=== PATIENT | female | born 1965 | race Caucasian/White ===

== ENCOUNTER 2016-06-27 05:26 | Observation (INO) | payer OTHER ==
[2016-06-27] MEDS ORDERED: Nitroglycerin 2% Oint 1 GM UD Packet TOP ONE (05:51)
[2016-06-27] MEDS ORDERED: Alum Hydrox/Mag Hydrox/Simeth 15 ML, Metoclopramide 5 MG, Lidocaine 2% 5 ML PO ONE ×3 (05:51)
[2016-06-27] MEDS ORDERED: Sucralfate Suspension 1 GM/10 ML Cup PO STA (05:51)
[2016-06-27] MEDS ORDERED: Aspirin 81 MG Tab.Chew PO ONE (05:51)
[2016-06-27] MEDS ORDERED: Nitroglycerin 0.4 MG Tab.SL SL PRN (05:51)
--- NOTE | 2016-06-27 05:56 | EDM.PDOC ---
ED HISTORY OF PRESENT ILLNESS - General Chief Complaint: Cardiovascular Problem Stated Complaint: CHEST PAIN Time Seen by Provider: 06/27/16 05:53 Source of Information: Reports: Patient, Family, RN - History of Present Illness INITIAL COMMENTS - FREE TEXT/NARRATIVE: She presented to the emergency department approximately a 2 hour history of progressive epigastric and substernal chest burning. She has felt dyspneic. She' s feeling a little better now. She has no known history of coronary artery disease. - Related Data Allergies/ADRs: Allergies Allergy/AdvReac Type Severity Reaction Status Date / Time No Known Allergies Allergy Verified 06/27/16 05:31 Home Meds: Home Meds Levothyroxine Sodium [Synthroid] 25 mcg PO ACBREAKFAST 06/09/16 [History] Past Medical History - Past Health History Medical/Surgical History: Denies Medical/Surgical History Cardiovascular History: Reports: Hypertension (She states that she has had hypertension), Other (see below) (Prior history of atrial flutter diagnosed June 09, 2016 [facility]). Denies: CAD, Heart Failure, MO ( before but has not been on any medicine for it) Respiratory History: Denies: COPD, Cystic Fibrosis, Interstitial lung disease Genitourinary History: Reports: None Other OB/BYN History: Partial Hysterectomy Neurological History: Denies: CVA Endocrine/Metabolic History: Reports: Hypothyroidism. Denies: Diabetes, type II Oncologic (Cancer) History: Reports: Cervix - Infectious Disease History Infectious Disease History: Reports: Chicken pox - Past Surgical History Female Surgical History: Reports: Hysterectomy, Other (see below) Other Female Surgeries/Procedures: partial hysterectomy Social & Family History - Family History Family Medical History: Noncontributory Cardiac: Reports: Hypertension, MO - Tobacco Use Smoking Status *Q: Current Every Day Smoker Years of Tobacco use: 20 Packs/Tins Daily: 0.5 - Caffeine Use Caffeine Use: Reports: Coffee Caffeine Use Comment: 1cup/day - Alcohol Use Alcohol Use Comment: She states she does not use alcohol. - Recreational Drug Use Recreational Drug Use: No ED ROS GENERAL - Review of Systems Review Of Systems: See Below Constitutional: Denies: fever, chills Respiratory: Reports: shortness of breath. Denies: cough Cardiovascular: Reports: Chest pain ED EXAM, GENERAL - Physical Exam Exam: See Below General Appearance: alert, anxious, other (She is tearful) Head: atraumatic Respiratory/Chest: no respiratory distress, lungs clear. No: chest non-tender ( Mild sternal chest tenderness) Cardiovascular: normal peripheral pulses, regular rate, rhythm GI/Abdominal: soft, non tender. No: tender Extremities: No: pedal edema Neurological: alert, CN II-XII intact Psychiatric: tearful Course - Vital Signs Last Recorded V/S: Last Vital Signs Temp 97.9 F 06/27/16 07:51 Pulse 72 06/27/16 07:51 Resp 20 06/27/16 07:51 BP 120/80 06/27/16 07:51 Pulse Ox 95 06/27/16 07:51 - Orders/Labs/Meds Orders: Active Orders 24 hr Category Date Time Status Patient Status [ADT] Routine ADT 06/27/16 07:10 Active EKG Documentation Completion [RC] STAT Care 06/27/16 05:35 Active Oxygen Therapy [RC] PRN Care 06/27/16 07:10 Active VTE/DVT Education [RC] PER UNIT ROUTINE Care 06/27/16 07:10 Active Vital Signs [RC] Q4H Care 06/27/16 07:10 Active Regular Diet [DIET] Diet 06/27/16 Lunch Active Chest 1V Frontal [CR] Stat Exams 06/27/16 05:35 Taken TROPONIN I [CHEM] Q6H Lab 06/27/16 12:00 Ordered TROPONIN I [CHEM] Q6H Lab 06/27/16 18:00 Ordered Bisacodyl [Dulcolax] Med 06/27/16 07:10 Active 5 mg PO DAILY PRN Enoxaparin [Lovenox] Med 06/28/16 09:00 Active 40 mg SUBCUT DAILY Levothyroxine Med 06/27/16 07:30 Active 25 mcg PO ACBREAKFAST Nitroglycerin [Nitro-Bid 2%] Med 06/27/16 07:30 Active 1 gm TOP Q6H Ondansetron [Zofran] Med 06/27/16 07:10 Active 4 mg IVPUSH Q4H PRN Pantoprazole [Protonix IV] Med 06/27/16 21:00 Active 40 mg IVPUSH BID Sodium Chloride 0.9% [Saline Flush] Med 06/27/16 07:10 Active 10 ml FLUSH ASDIRECTED PRN Sodium Chloride 0.9% [Saline Flush] Med 06/27/16 07:10 Active 2.5 ml FLUSH ASDIRECTED PRN Sucralfate [Carafate] Med 06/27/16 07:30 Active 1 gm PO Q6H Temazepam [Restoril] Med 06/27/16 07:10 Active 15 mg PO BEDTIME PRN Saline Lock Insert [OM.PC] Routine Oth 06/27/16 07:10 Ordered Resuscitation Status Routine Resus Stat 06/27/16 07:10 Ordered Medication Orders Bisacodyl (Dulcolax) 5 mg PO DAILY PRN PRN Reason: Constipation Enoxaparin Sodium (Lovenox) 40 mg SUBCUT DAILY ACE Levothyroxine Sodium (Levothyroxine) 25 mcg PO ACBREAKFAST ACE Nitroglycerin (Nitro-Bid 2%) 1 gm TOP Q6H ACE Ondansetron HCl (Zofran) 4 mg IVPUSH Q4H PRN PRN Reason: Nausea Pantoprazole Sodium (Protonix Iv) 40 mg IVPUSH BID ACE Sodium Chloride (Saline Flush) 10 ml FLUSH ASDIRECTED PRN PRN Reason: Keep Vein Open Sodium Chloride (Saline Flush) 2.5 ml FLUSH ASDIRECTED PRN PRN Reason: Keep Vein Open Sucralfate (Carafate) 1 gm PO Q6H ACE Temazepam (Restoril) 15 mg PO BEDTIME PRN PRN Reason: Sleep Labs: Laboratory Tests 06/27/16 06/27/16 06/27/16 Range/Units 05:42 05:42 05:42 WBC 8.31 (4.0-11.0) K/uL RBC 5.00 (4.30-5.90) M/uL Hgb 16.5 H (12.0-16.0) g/dL Hct 48.8 H (36.0-46.0) % MCV 97.6 (80.0-98.0) fL MCH 33.0 H (27.0-32.0) pg MCHC 33.8 (31.0-37.0) g/dL RDW Std Deviation 45.7 (28.0-62.0) fl RDW Coeff of Brittney 13 (11.0-15.0) % Plt Count 298 (150-400) K/uL MPV 12.40 H (7.40-12.00) fL Neut % (Auto) 58.7 (48.0-80.0) % Lymph % (Auto) 33.3 (16.0-40.0) % Mineral % (Auto) 5.5 (0.0-15.0) % Eos % (Auto) 1.4 (0.0-7.0) % Baso % (Auto) 1.1 (0.0-1.5) % Neut # 4.9 (1.4-5.7) K/uL Lymph # 2.8 H (0.6-2.4) K/uL Mineral # 0.5 (0.0-0.8) K/uL Eos # 0.1 (0.0-0.7) K/uL Baso # 0.1 (0.0-0.1) K/uL Nucleated RBC % 0.0 /100WBC Nucleated RBCs # 0 K/uL D-Dimer, Quantitative (0.0-0.52) mg/LFEU Sodium 139 (136-146) mmol/L Potassium 3.8 (3.5-5.1) mmol/L Chloride 103 (98-110) mmol/L Carbon Dioxide 24 (21-31) mmol/L BUN 15 (6.0-23.0) mg/dL Creatinine 0.9 (0.6-1.5) mg/dL Est Cr Clr Drug Dosing 65.29 mL/min Estimated GFR (MDRD) > 60.0 ml/min Glucose 211 H (60-110) mg/dL Calcium 9.9 (8.8-10.8) mg/dL Total Bilirubin 0.9 (0.1-1.5) mg/dL AST 29 (5-40) IU/L ALT 58 H (8-54) IU/L Alkaline Phosphatase 96 (40-150) CK-MB (CK-2) 1.5 (0-6.6) ng/ml Troponin I < 0.10 (0.0-0.29) NG/ML Total Protein 7.9 (6.0-8.0) g/dL Albumin 4.2 (3.5-5.0) g/dL Globulin 3.7 H (2.0-3.5) g/dL Albumin/Globulin Ratio 1.1 L (1.3-2.8) Triglycerides (10-190) mg/dL Cholesterol (131-240) mg/dL LDL Cholesterol, Calc (60-180) mg/dL VLDL Cholesterol (5-55) mg/dL HDL Cholesterol (40-80) mg/dL Cholesterol/HDL Ratio (3.3-6.0) 06/27/16 06/27/16 Range/Units 05:42 05:42 WBC (4.0-11.0) K/uL RBC (4.30-5.90) M/uL Hgb (12.0-16.0) g/dL Hct (36.0-46.0) % MCV (80.0-98.0) fL MCH (27.0-32.0) pg MCHC (31.0-37.0) g/dL RDW Std Deviation (28.0-62.0) fl RDW Coeff of Brittney (11.0-15.0) % Plt Count (150-400) K/uL MPV (7.40-12.00) fL Neut % (Auto) (48.0-80.0) % Lymph % (Auto) (16.0-40.0) % Mineral % (Auto) (0.0-15.0) % Eos % (Auto) (0.0-7.0) % Baso % (Auto) (0.0-1.5) % Neut # (1.4-5.7) K/uL Lymph # (0.6-2.4) K/uL Mineral # (0.0-0.8) K/uL Eos # (0.0-0.7) K/uL Baso # (0.0-0.1) K/uL Nucleated RBC % /100WBC Nucleated RBCs # K/uL D-Dimer, Quantitative 0.32 (0.0-0.52) mg/LFEU Sodium (136-146) mmol/L Potassium (3.5-5.1) mmol/L Chloride (98-110) mmol/L Carbon Dioxide (21-31) mmol/L BUN (6.0-23.0) mg/dL Creatinine (0.6-1.5) mg/dL Est Cr Clr Drug Dosing mL/min Estimated GFR (MDRD) ml/min Glucose (60-110) mg/dL Calcium (8.8-10.8) mg/dL Total Bilirubin (0.1-1.5) mg/dL AST (5-40) IU/L ALT (8-54) IU/L Alkaline Phosphatase (40-150) CK-MB (CK-2) (0-6.6) ng/ml Troponin I (0.0-0.29) NG/ML Total Protein (6.0-8.0) g/dL Albumin (3.5-5.0) g/dL Globulin (2.0-3.5) g/dL Albumin/Globulin Ratio (1.3-2.8) Triglycerides 211 H (10-190) mg/dL Cholesterol 257 H (131-240) mg/dL LDL Cholesterol, Calc 179 (60-180) mg/dL VLDL Cholesterol 42 (5-55) mg/dL HDL Cholesterol 36 L (40-80) mg/dL Cholesterol/HDL Ratio 7.1 H (3.3-6.0) Meds: Medications Generic Name Dose Route Start Last Admin Trade Name Freq PRN Reason Stop Dose Admin Bisacodyl 5 mg 06/27/16 07:10 Dulcolax PO DAILY PRN Constipation Enoxaparin Sodium 40 mg 06/28/16 09:00 Lovenox SUBCUT DAILY [facility] Levothyroxine Sodium 25 mcg 06/27/16 07:30 Levothyroxine PO ACBREAKFAST [facility] Nitroglycerin 1 gm 06/27/16 07:30 Nitro-Bid 2% TOP Q6H ACE Ondansetron HCl 4 mg 06/27/16 07:10 Zofran IVPUSH Q4H PRN Nausea Pantoprazole Sodium 40 mg 06/27/16 21:00 Protonix Iv IVPUSH BID ACE Sodium Chloride 10 ml 06/27/16 07:10 Saline Flush FLUSH ASDIRECTED PRN Keep Vein Open Sodium Chloride 2.5 ml 06/27/16 07:10 Saline Flush FLUSH ASDIRECTED PRN Keep Vein Open Sucralfate 1 gm 06/27/16 07:30 Carafate PO Q6H ACE Temazepam 15 mg 06/27/16 07:10 Restoril PO BEDTIME PRN Sleep Discontinued Medications Generic Name Dose Route Start Last Admin Trade Name Freq PRN Reason Stop Dose Admin Aspirin 324 mg 06/27/16 05:51 06/27/16 06:02 Aspirin PO 06/27/16 05:52 324 mg ONETIME ONE Administration Al Hydroxide/Mg Hydroxide 15 0 ml 06/27/16 05:51 06/27/16 06:03 ml/ Metoclopramide HCl 5 mg/ PO 06/27/16 05:52 25 each Lidocaine HCl 5 ml ONETIME ONE Administration Nitroglycerin 1 gm 06/27/16 05:51 06/27/16 06:07 Nitro-Bid 2% TOP 06/27/16 05:52 1 gm ONETIME ONE Administration Nitroglycerin 0.4 mg 06/27/16 05:51 06/27/16 06:06 Nitrostat SL 06/27/16 06:02 0.4 mg Q5M PRN Administration Chest Pain Sucralfate 1 gm 06/27/16 05:51 06/27/16 06:19 Carafate PO 06/27/16 05:52 1 gm NOW STA Administration Departure - Departure Time of Disposition: 07:30 Disposition: Refer to Observation Clinical Impression: Atypical chest pain - My Orders Last 24 Hours: My Active Orders 06/27/16 05:35 EKG Documentation Completion [RC] STAT Chest 1V Frontal [CR] Stat 06/27/16 07:10 Patient Status [ADT] Routine Oxygen Therapy [RC] PRN VTE/DVT Education [RC] PER UNIT ROUTINE Vital Signs [RC] Q4H Bisacodyl [Dulcolax] 5 mg PO DAILY PRN Ondansetron [Zofran] 4 mg IVPUSH Q4H PRN Sodium Chloride 0.9% [Saline Flush] 10 ml FLUSH ASDIRECTED PRN Sodium Chloride 0.9% [Saline Flush] 2.5 ml FLUSH ASDIRECTED PRN Temazepam [Restoril] 15 mg PO BEDTIME PRN Saline Lock Insert [OM.PC] Routine Resuscitation Status Routine 06/27/16 07:30 Levothyroxine 25 mcg PO ACBREAKFAST Nitroglycerin [Nitro-Bid 2%] 1 gm TOP Q6H Sucralfate [Carafate] 1 gm PO Q6H 06/27/16 12:00 TROPONIN I [CHEM] Q6H 06/27/16 18:00 TROPONIN I [CHEM] Q6H 06/27/16 21:00 Pantoprazole [Protonix IV] 40 mg IVPUSH BID 06/27/16 Lunch Regular Diet [DIET] 06/28/16 09:00 Enoxaparin [Lovenox] 40 mg SUBCUT DAILY - Assessment/Plan Last 24 Hours: My Active Orders 06/27/16 05:35 EKG Documentation Completion [RC] STAT Chest 1V Frontal [CR] Stat 06/27/16 07:10 Patient Status [ADT] Routine Oxygen Therapy [RC] PRN VTE/DVT Education [RC] PER UNIT ROUTINE Vital Signs [RC] Q4H Bisacodyl [Dulcolax] 5 mg PO DAILY PRN Ondansetron [Zofran] 4 mg IVPUSH Q4H PRN Sodium Chloride 0.9% [Saline Flush] 10 ml FLUSH ASDIRECTED PRN Sodium Chloride 0.9% [Saline Flush] 2.5 ml FLUSH ASDIRECTED PRN Temazepam [Restoril] 15 mg PO BEDTIME PRN Saline Lock Insert [OM.PC] Routine Resuscitation Status Routine 06/27/16 07:30 Levothyroxine 25 mcg PO ACBREAKFAST Nitroglycerin [Nitro-Bid 2%] 1 gm TOP Q6H Sucralfate [Carafate] 1 gm PO Q6H 06/27/16 12:00 TROPONIN I [CHEM] Q6H 06/27/16 18:00 TROPONIN I [CHEM] Q6H 06/27/16 21:00 Pantoprazole [Protonix IV] 40 mg IVPUSH BID 06/27/16 Lunch Regular Diet [DIET] 06/28/16 09:00 Enoxaparin [Lovenox] 40 mg SUBCUT DAILY
[2016-06-27 06:14] LABS: CHLORIDE,CL 103 mmol/L (98-110); SODIUM,NA 139 mmol/L (136-146)
[2016-06-27] MEDS ORDERED: Sodium Chloride 0.9% 10 ML Syringe FLUSH PRN (07:10)
[2016-06-27] MEDS ORDERED: Temazepam 15 MG Cap PO PRN (07:10)
[2016-06-27] MEDS ORDERED: Bisacodyl 5 MG Tab PO PRN (07:10)
[2016-06-27] MEDS ORDERED: Sodium Chloride 0.9% 2.5 ML Syringe FLUSH PRN (07:10)
[2016-06-27] MEDS ORDERED: Ondansetron 4 MG/2 ML SDV IVPUSH PRN (07:10)
[2016-06-27] MEDS ORDERED: Levothyroxine 25 MCG Tab PO SCH (07:30)
[2016-06-27] MEDS ORDERED: Nitroglycerin 2% Oint 1 GM UD Packet TOP SCH (07:30)
[2016-06-27] MEDS: Sucralfate Suspension 1 GM/10 ML Cup PO SCH ×2 (09:13→13:53)
[2016-06-27] MEDS ORDERED: Acetaminophen 325 MG Tab PO PRN (11:42)
[2016-06-27 12:09] VITALS: BP 106/66
[2016-06-27] MEDS ORDERED: Nitroglycerin 2% Oint 1 GM UD Packet TOP PRN (12:37)
[2016-06-27] MEDS ORDERED: Clopidogrel 75 MG Tab PO ONE (12:39)
[2016-06-27] MEDS ORDERED: Enoxaparin 100 MG/1 ML Syringe ONE (12:54)
[2016-06-27] MEDS ORDERED: atorvaSTATin 40 MG Tab PO ONE (13:00)
[2016-06-27] MEDS ORDERED: Pantoprazole 40 MG in Sodium Chloride 0.9% 10 ML IV SCH (13:00)
[2016-06-27] MEDS ORDERED: Enoxaparin 100 MG/1 ML Syringe SUBCUT ONE (13:00)
--- NOTE | 2016-06-27 16:11 | CR ---
EXAM DATE: 06/27/16 PATIENT'S AGE: 50 Patient: JAD MELÉNDEZ Facility: [place], [place] Site . Site : 1965 Study: XRay Chest [id number]/28/[id number] 5:51:33 AM Ordering Physician: Doctor Pool Final Report: INDICATION: Chest Pain TECHNIQUE: Chest 1 view. COMPARISON: 06/09/2016 FINDINGS: Cardiovascular and mediastinum: Heart size and vasculature are normal in caliber and appearance. Mediastinum is within normal limits. Lungs and pleural space: Lungs are clear. No sign of infiltrate or mass. No sign of pleural effusion. No pneumothorax. Bones and soft tissues: No significant findings. IMPRESSION: Unremarkable chest. Dictated by: Pankaj Owens MD @ 06/27/2016 05:52:19 (Electronic Signature) Report Signed by Proxy and Original Signed Document filed in the Medical Record. MTDD
--- NOTE | 2016-06-27 17:17 | PCM.SN ---
- Free Text/Narrative Note: #[id number]
[2016-06-27] MEDS ORDERED: atorvaSTATin 40 MG Tab PO SCH (21:00)
[2016-06-27] MEDS ORDERED: Pantoprazole 40 MG Vial IVPUSH SCH (21:00)
--- NOTE | 2016-06-28 01:02 | HP ---
DATE OF : 1965 PRIMARY CARE PHYSICIAN: None PCP CHIEF COMPLAINT: Chest pain. HISTORY OF PRESENT ILLNESS: A 50-year-old female presented to the emergency room because of chest pain that started around 4:30 in the morning when she work up to go to work. She was taking a shower when the pain started and the pain was severe, it was localized in the middle of the chest, was burning like, and was associated with numbness and tingling in the left arm. There was no alleviating and no aggravating factors and the patient also said that she felt like she was gagging to vomit. She had similar chest pain 2 weeks ago, but the pain was for a shorter duration and was intermittent and was burning localized in the middle of the chest. The patient came to the emergency room 2 weeks ago and she was given phone number to follow up with GI and cardiology. Today, the chest pain lasted for 1 hour and it subsided before she came to the emergency room where she received aspirin, nitroglycerin and GI cocktail. The patient has remote history of acid reflux and currently she is on PPI daily. PAST MEDICAL HISTORY: She has history of hypothyroid disease and history of hypertension. Currently, her blood pressure is well controlled and the patient is off blood pressure medications. Also, history of GERD. PAST SURGICAL HISTORY: She had partial hysterectomy. ALLERGIES: The patient does not have any known allergies. SOCIAL HISTORY: She smokes half pack a day for the past 20 years. No alcohol use. No drug use. She works as a dispatch. FAMILY HISTORY: Her mother had bone cancer and her father, she does not know him. She denies any history of coronary artery disease before the age of 56. REVIEW OF SYSTEMS: A 12-point review of system is negative except as in history of present illness. PHYSICAL EXAMINATION: VITAL SIGNS: The patient had temperature 97.9, pulse 72, respiratory rate 20, blood pressure 120/80, pulse oximetry 95. HEENT: The patient's head is atraumatic and normocephalic. Pupils equally reactive to light. NECK: Supple. No thyromegaly, no lymphadenopathy. HEART: S1, S2. Regular rhythm and rate. No murmur. LUNGS: Clear to auscultation bilaterally. ABDOMEN: Soft. Nontender. Positive bowel sounds. EXTREMITIES: No edema. NEUROLOGIC: The patient is alert, oriented x3. There are no gross focal neurologic deficits. There is mild tenderness to palpation in the epigastro of the patient. LABORATORY DATA: At admission, the patient's WBC is 8.31, hemoglobin 16.5, hematocrit 48.8 and platelets 298. Troponin less than 0.1. Calcium 9.9, glucose 211, bilirubin 0.9. AST 29, ALT 58, alkaline phosphatase 96. Albumin 4.2. D-dimer 0.32. Triglycerides 211, cholesterol 257. LDL 179, VLDL 42, HDL 36. EKG shows sinus rate of 83, borderline right axis deviation. DE interval 124, QRS duration 100, QTT 87, QTC 455. ASSESSMENT AND PLAN: Chest pain. Rule out acute coronary syndrome. We will admit the patient to observation to medical telemetry and will follow up 3 sets of cardiac enzymes. The patient was given nitropaste in ER. We will continue nitropaste and she received aspirin 325 mg in the emergency room. We will continue the patient with aspirin 325 mg p.o. daily. Currently, the patient is pain free. We will monitor the patient in telemetry. For hypothyroidism, we will continue the patient with levothyroxine 25 mcg p.o. daily. For hyperlipidemia, we will start the patient on atorvastatin 40 mg p.o. daily. For hypertension, we will monitor blood pressure. Currently, her blood pressure is normal. We will treat the patient as needed. For deep venous thrombosis prophylaxis, we will give the patient Lovenox subcu 40 mg. For hyperglycemia, we will order hemoglobin A1c. The patient to have hemoglobin A1c. DISCHARGE SUMMARY: The patient's troponin second set came elevated to 0.31 and the patient had chest pain again, substernal. She was assessed as having non-ST elevation myocardial infarction and the patient was transferred to [facility]. Prior to transfer, the patient was given Plavix 300 mg p.o. one dose and Lovenox full dose 1 mg/kg and nitropaste , which was discontinued in the morning due to chest pain was restarted. The patient was transferred via ACLS and accepting physician was Dr. Adams at the [facility]. HUMBERTO / PRASHANTH /[id number] ADAL
[2016-06-28] MEDS ORDERED: Enoxaparin 40 MG/0.4 ML Syringe SUBCUT SCH (09:00)
== END 2016-06-27 12:50 ==
LOC: MW.ED 05:26 → MW.MS 07:43
PROVIDERS: ADMIT Internal Medicine; ATTEND Internal Medicine
DX: R07.9 Chest pain, unspecified (principal); I10 Essential (primary) hypertension; E78.5 Hyperlipidemia, unspecified; E03.9 Hypothyroidism, unspecified; I82.409 Acute embolism and thrombosis of unspecified deep veins of unspecified lower extremity; R73.9 Hyperglycemia, unspecified; K21.9 Gastro-esophageal reflux disease without esophagitis; F17.210 Nicotine dependence, cigarettes, uncomplicated; Z90.710 Acquired absence of both cervix and uterus
CPT/HCPCS: 36415; 71010; 80053; 80061; 82553; 84484; 85025; 85379; 93005; 96372; 96374; 99285; A9270; C9113; G0378; J1650; 99284

== ENCOUNTER 2017-03-09 19:08 | Emergency (ER) | payer OTHER ==
[2017-03-09] MEDS ORDERED: Ketorolac 60 MG/2 ML SDV IM ONE (19:31)
--- NOTE | 2017-03-09 19:37 | EDM.PDOC ---
ED HPI GENERAL MEDICAL PROBLEM - General Chief Complaint: Upper Extremity Injury/Pain Stated Complaint: PT RT ARM HURTING Time Seen by Provider: 03/09/17 19:23 Source of Information: Reports: Patient History Limitations: Reports: No Limitations - History of Present Illness INITIAL COMMENTS - FREE TEXT/NARRATIVE: HISTORY AND PHYSICAL: Shoulder pain History of present illness: Patient is a 51-year-old female who presents to the emergency room with complaints of right shoulder pain. She states that for over a year she has had intermittent right shoulder pain. States the pain starts at the shoulder and goes down the bicep and stops at the elbow. At times she feels like she needs to assist her arm to move it and has increased pain with range of motion. Denies any weakness. She has no known injury or trauma to the area. States "I just recently started taking Tylenol but don't feel it's helping much ". Denies any chest pain, shortness of breath, cough, abdominal pain, nausea, vomiting or diarrhea. Sees a primary care provider at [facility]. Review of systems: As per history of present illness and below otherwise all systems reviewed and negative. Past medical history: As per history of present illness and as reviewed below otherwise noncontributory. Surgical history: As per history of present illness and as reviewed below otherwise noncontributory. Social history: No reported history of drug or alcohol abuse. Family history: As per history of present illness and as reviewed below otherwise noncontributory. Physical exam: Gen.: Nontoxic appearing 51-year-old female. Able to speak in full sentences without shortness of breath. Alert and oriented. HEENT: Atraumatic, normocephalic, pupils reactive, negative for conjunctival pallor or scleral icterus, mucous membranes moist, throat clear, neck supple, nontender, trachea midline. Lungs: Clear to auscultation, breath sounds equal bilaterally, chest nontender. Heart: S1S2, regular, negative for clicks, rubs, or JVD. Abdomen: Soft, nondistended, nontender. Negative for masses or hepatosplenomegaly. Negative for costovertebral tenderness. Pelvis: Stable nontender. Genitourinary: Deferred. Rectal: Deferred. Extremities: Atraumatic, moves all extremities per self. Increased pain with range of motion at the right shoulder joint. 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 Good capillary refill. Strong radial pulse. Skin is intact, warm, dry. Neurovascular unremarkable. Neuro: Awake, alert, oriented. Cranial nerves II through XII unremarkable. Cerebellum unremarkable. Motor and sensory unremarkable throughout. Exam nonfocal. As this shoulder pain is over a year old we did discuss the likelihood of this being a fracture very low. She states she is here today to find out why she is having so much pain in the right shoulder. I told her that it is very unlikely I will have this answer for her today and she sounds as if she needs an MRI. Patient states that she would still like the x-ray at this time. Discussed pain management and she states that she does not like to take any medicines at home. She is agreeable to receiving Toradol IM. X-rays benign. We did discuss the results of this. She will follow-up with the primary care provider for referral of MRI. Prescription for Cataflam, before meals milligrams 1 tab 3 times a day as needed for pain. Diagnostics: Right shoulder x-ray Therapeutics: Toradol Impression: Right shoulder pain Plan: 1. As we discussed you may need an MRI for further testing/evaluation of your shoulder pain. Please follow-up with a primary care provider to have this arranged. 2. You may apply ice and gentle heat to the area for comfort. Cataflam was prescribed to you. Do not take this medication with any additional NSAIDs such as Aleve or ibuprofen. May want to take this medication with food as it has some stomach upset/irritation. Tylenol may be taken in adjunction to this medication. 3. Return to the ED as needed and as discussed. Definitive disposition and diagnosis as appropriate pending reevaluation and review of above. Duration: Chronic right upper extremity Pain Score (Numeric/FACES): 10 - Related Data Allergies Allergy/AdvReac Type Severity Reaction Status Date / Time No Known Allergies Allergy Verified 03/09/17 19:13 Home Meds: Home Meds Levothyroxine Sodium [Synthroid] 25 mcg PO ACBREAKFAST 06/09/16 [History] Aspirin 81 mg PO DAILY 03/09/17 [History] Past Medical History - Past Health History Medical/Surgical History: Denies Medical/Surgical History HEENT History: Reports: Hard of Hearing Other HEENT History: Patient is legally deaf Cardiovascular History: Reports: Hypertension, Other (See Below) Other Cardiovascular History: History of chest pains gaining intensity over the past few weeks Genitourinary History: Reports: None Other OB/BYN History: Partial Hysterectomy Endocrine/Metabolic History: Reports: Diabetes, Type II, Hypothyroidism Oncologic (Cancer) History: Reports: Cervix Other Oncologic History: Cervical cancer, partial historectomy - Infectious Disease History Infectious Disease History: Reports: Chicken Pox - Past Surgical History Female Surgical History: Reports: Hysterectomy, Other (See Below) Social & Family History - Family History Family Medical History: Noncontributory Cardiac: Reports: Hypertension, [place] Endocrine/Metabolic: Reports: Diabetes, Type I, Diabetes, type II, Other (See Below) Other Endocrine/Metabolic Family History: History of diabetes, patient unsure of type. - Tobacco Use Smoking Status *Q: Never Smoker Years of Tobacco use: 20 Packs/Tins Daily: 0.5 - Caffeine Use Caffeine Use: Reports: Coffee Other Caffeine Use: 1 cup coffee once per day M-F Caffeine Use Comment: 1 cup daily - Recreational Drug Use Recreational Drug Use: No Review of Systems - Review of Systems Review Of Systems: ROS reveals no pertinent complaints other than HPI. ED EXAM, GENERAL - Physical Exam Exam: See Below (See dictation) Course - Vital Signs Last Recorded V/S: Last Vital Signs Temp 36.1 C 03/09/17 19:08 Pulse 68 03/09/17 19:08 Resp 18 03/09/17 19:08 BP 148/83 H 03/09/17 19:08 Pulse Ox 95 03/09/17 19:08 - Orders/Labs/Meds Orders: Active Orders 24 hr Category Date Time Status Shoulder Comp Rt [CR] Stat Exams 03/09/17 19:31 Taken Meds: Medications Discontinued Medications Generic Name Dose Route Start Last Admin Trade Name Freq PRN Reason Stop Dose Admin Ketorolac Tromethamine 60 mg 03/09/17 19:31 03/09/17 19:37 Toradol IM 03/09/17 19:32 60 mg ONETIME ONE Administration Departure - Departure Time of Disposition: 20:12 Disposition: Home, Self-Care 01 Condition: Good Clinical Impression: Chronic shoulder pain Qualifiers: Laterality: right Qualified Code(s): M25.511 - Pain in right shoulder; G89.29 - Other chronic pain; G89.29 - Other chronic pain - Discharge Information Referrals: PCP,None [Primary Care Provider] - Forms: ED Department Discharge Additional Instructions: My general discharge The following information is given to patients seen in the emergency department who are being discharged to home. This information is to outline your options for follow-up care. We provide all patients seen in our emergency department with a follow-up referral. The need for follow-up, as well as the timing and circumstances, are variable depending upon the specifics of your emergency department visit. If you don't have a primary care physician on staff, we will provide you with a referral. We always advise you to contact your personal physician following an emergency department visit to inform them of the circumstance of the visit and for follow-up with them and/or the need for any referrals to a consulting specialist. The emergency department will also refer you to a specialist when appropriate. This referral assures that you have the opportunity for follow-up care with a specialist. All of these measure are taken in an effort to provide you with optimal care, which includes your follow-up. Under all circumstances we always encourage you to contact your private physician who remains a resource for coordinating your care. When calling for follow-up care, please make the office aware that this follow-up is from your recent emergency room visit. If for any reason you are refused follow-up, please contact the [facility] Emergency Department at and asked to speak to the emergency department charge nurse. [facility] [address] [place] [address] [id number] [address] [address] 1. As we discussed you may need an MRI for further testing/evaluation of your shoulder pain. Please follow-up with a primary care provider to have this arranged. 2. You may apply ice and gentle heat to the area for comfort. Cataflam was prescribed to you. Do not take this medication with any additional NSAIDs such as Aleve or ibuprofen. May want to take this medication with food as it has some stomach upset/irritation. Tylenol may be taken in adjunction to this medication. 3. Return to the ED as needed and as discussed. - My Orders Last 24 Hours: My Active Orders 03/09/17 19:31 Shoulder Comp Rt [CR] Stat - Assessment/Plan Last 24 Hours: My Active Orders 03/09/17 19:31 Shoulder Comp Rt [CR] Stat
[2017-03-09 20:43] VITALS: BP 127/81
--- NOTE | 2017-03-12 10:37 | CR ---
EXAM DATE: 03/09/17 PATIENT'S AGE: 51 Patient: JAD MELÉNDEZ Facility: [place], [place] Site . Site : 1965 Study: XRay Shoulder [id number]/10/2017 8:00:49 PM Ordering Physician: Doctor Pool Final Report: HISTORY: Pain, no injury. FINDINGS: Three views of the right shoulder demonstrates mild degenerative change of the AC joint. The glenohumeral joint is maintained. No soft tissue calcification, fracture or dislocation is seen. 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 Dictated by Felecia Glass MD @ 03/09/2017 8:12:22 PM Dictated by: Felecia Glass MD @ 03/09/2017 20:12:26 (Electronic Signature) Report Signed by Proxy. [email or web address]
== END 2017-03-09 20:46 | disposition home or self-care (01) ==
LOC: MW.ED 19:08
DX: G89.29 Other chronic pain (principal); M25.511 Pain in right shoulder; I10 Essential (primary) hypertension; E11.9 Type 2 diabetes mellitus without complications; E03.9 Hypothyroidism, unspecified; Z79.82 Long term (current) use of aspirin
CPT/HCPCS: 73030; 96372; 99283; J1885; 99284